=== PATIENT | female | born 1955 | race Caucasian/White ===

== ENCOUNTER 2018-08-14 14:51 | Outpatient (CLI) | payer BC ==
--- NOTE | 2018-08-14 15:58 | ULT ---
ULTRASOUND RETROPERITONEUM COMPLETE: (RENAL) HISTORY: Microscopic hematuria in 62-year-old female. FINDINGS: The right kidney measures 9.5 x 3.5 x 3 cm. The left kidney measures 9.5 x 4.5 x 3.5 cm. Both kidne ys have normal cortical thickness and normal cortical echogenicity. There is no hydronephrosis. Inc ompletely distended urinary bladder. IMPRESSION: Negative. jn [] POS: [facility]
== END 2018-08-14 14:52 | disposition home or self-care (01) ==
LOC: SCSULT 14:51
PROVIDERS: ATTEND Internal Medicine
DX: R31.21 Asymptomatic microscopic hematuria (principal)
CPT/HCPCS: 76770